=== PATIENT | male | born 1950 | race Caucasian/White ===

== ENCOUNTER 2016-09-16 12:55 | Outpatient (RCR) | payer BC ==
[~2016-09-16 12:55] MED LIST: ACET-2469 PO; ACET1TAB43 PO; CIPR-226 PO; MULT-1029 PO; NF-ESOM40C PO; OMG1KC PO; RANI150T15 PO; TAMS0.4C98 PO; TRAZ100T92 PO; VITA1TAB17 PO
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
== END 2016-12-15 | disposition home or self-care (01) ==
LOC: ONC 12:55
PROVIDERS: ATTEND Radiology Radiation Oncology
DX: C61 Malignant neoplasm of prostate (principal)
CPT/HCPCS: 36415; 84153; 99213